=== PATIENT | female | born 1975 | race Caucasian/White ===

== ENCOUNTER 2016-09-06 07:45 | Emergency (ER) | payer OTHER ==
--- NOTE | 2016-09-06 07:56 | PDOC ---
History of Present Illness - General History Source: Patient Exam Limitations: No Limitations - History of Present Illness Initial Comments: CHIEF COMPLAINT: 40 y/o afebrile female with PMH kidney stones, visiting from [place] on vacation c/o right side pain with nausea and vomiting this morning. HISTORY OF PRESENT ILLNESS: The patient states this feels like her normal kidney stone pain. She states it is intermittent, starting in her right lower back and radiating around to her right pelvis. She is currently vomiting. She denies fever, chills, Cp, SOB, hematuria, dysuria. The patient does not have a urologist in [place] and has never had a stent. Vital signs on arrival are REVIEW OF SYSTEMS: GENERAL/CONSTITUTIONAL: No fever/chills. No weakness. No weight change. HEAD, EYES, EARS, NOSE AND THROAT: No change in vision. No ear pain or discharge. No sore throat. CARDIOVASCULAR: No chest pain or shortness of breath. RESPIRATORY: No cough, wheezing, or hemoptysis. GASTROINTESTINAL: +nausea and vomiting. no diarrhea or constipation. GENITOURINARY: No dysuria, frequency, or change in urination. MUSCULOSKELETAL: No joint or muscle swelling or pain. No neck pain. +right low back and side pain. SKIN: No rash or easy bruising. NEUROLOGIC: No headache, vertigo, loss of consciousness, or loss of sensation. PHYSICAL EXAM: GENERAL: The patient is awake, alert, and fully oriented, actively vomiting in the ER. HEAD: Normal with no signs of trauma. ENT: Pupils equal, round and reactive to light, extraocular movements intact, sclera anicteric, conjunctiva clear. Neck supple. LUNGS: Clear to auscultation bilaterally. Normal excursion. No respiratory distress or use of accessory muscles. CV: RRR, S1/S2, no MRG. Cap refill < 2 sec. ABDOMEN: Soft, non-distended, non-tender even to deep palpation, no hepatomegaly or splenomegaly, no masses. No rebound, guarding or rigidity. BACK: No CVA TTP b/l. Right flank pain with palpation. EXTREMITIES: Normal range of motion, no edema. NEUROLOGICAL: Normal speech, normal gait. CN II-XII grossly intact. PSYCH: Normal mood, normal affect. SKIN: Warm, dry, normal turgor, no rashes or lesions noted. <WoLisa boss - Last Filed: 09/06/16 10:34> <Jackie Ulloa - Last Filed: 09/07/16 15:38> - General Chief Complaint: Pain, Acute Stated Complaint: SIDE PAIN Time Seen by Provider: 09/06/16 07:49 Past History - Immunization History Immunization Up to Date: Yes - Psycho/Social/Smoking Cessation Hx Anxiety: No Suicidal Ideation: No Smoking History: Current every day smoker Number of Cigarettes Smoked Daily: 20 Hx Alcohol Use: No Drug/Substance Use Hx: No Substance Use Type: None <Lsia Ng - Last Filed: 09/06/16 10:34> <Jackie Ulloa - Last Filed: 09/07/16 15:38> - Past Medical History Allergies/Adverse Reactions: Allergies Allergy/AdvReac Type Severity Reaction Status Date / Time No Known Allergies Allergy Verified 09/06/16 08:25 Home Medications: Ambulatory Orders Ondansetron [Zofran Odt -] 4 mg SL TID #6 od.tablet 09/06/16 *Physical Exam - Vital Signs Last Vital Signs Temp Pulse Resp BP Pulse Ox 98.3 F 69 20 94/55 100 09/06/16 08:05 09/06/16 11:30 09/06/16 08:05 09/06/16 11:30 09/06/16 11:30 <Jackie Ulloa - Last Filed: 09/07/16 15:38> ED Treatment Course - LABORATORY CBC & Chemistry Diagram: 09/06/16 08:20 09/06/16 08:20 <Lisa Ng - Last Filed: 09/06/16 10:34> - LABORATORY CBC & Chemistry Diagram: 09/06/16 08:20 09/06/16 08:20 - ADDITIONAL ORDERS Additional order review: 09/06/16 09:06 Urine Culture - Final Urine - Urine Clean Catch NO GROWTH OBTAINED 09/06/16 08:20 RBC 4.60 MCV 88.1 MCHC 35.1 RDW 12.9 MPV 8.6 Neutrophils % 79.4 D Lymphocytes % 12.7 D Monocytes % 6.9 Eosinophils % 0.7 D Basophils % 0.3 - Medications Given in the ED: ED Medications Discontinued Medications Generic Name Dose Route Start Last Admin Trade Name Freq PRN Reason Stop Dose Admin Sodium Chloride 1,000 mls @ 1,000 mls/hr 09/06/16 08:06 09/06/16 08:10 Normal Saline - IV 09/06/16 09:05 1,000 mls/hr ASDIR STA Administration Ketorolac Tromethamine 30 mg 09/06/16 08:06 09/06/16 08:10 Toradol Injection - IVPUSH 09/06/16 08:07 30 mg ONCE ONE Administration Ondansetron HCl 4 mg 09/06/16 08:06 09/06/16 08:10 Zofran Injection IVPUSH 09/06/16 08:07 4 mg ONCE ONE Administration <Jackie Ulloa - Last Filed: 09/07/16 15:38> Medical Decision Making - Medical Decision Making A/P: 40 y/o afebrile female with possible right kidney stone. Plan is as follows: 1. UA/culture 2. Labs 3. IV fluids 4. IV Toradol 5. IV zofran 6. Spiral CT Labs unremarkable UA with >[address] IMPRESSION: 5mm calcification in bladder with mild hydronephrosis. The patient looks much better and states she feels much better. Gave her the results. Suggested she take 600mg of Ibuprofen every 6 hours with food for pain , drink plenty of fluids and return to the ER with any worsening or concerning symptoms. Will send rx for zofran. The patient verbalizes understanding of all instructions, has no further questions and is awaiting discharge. <Lisa Ng - Last Filed: 09/06/16 10:34> *DC/Admit/Observation/Transfer <Lisa Ng - Last Filed: 09/06/16 10:34> - Attestations Physician Attestion: I reviewed the case with the mid-level practitioner and agree with the mid- level practitioner's assessment, diagnosis and disposition. <Jackie Ulloa - Last Filed: 09/07/16 15:38> Diagnosis at time of Disposition: Kidney stone - Discharge Dispostion Disposition: HOME Condition at time of disposition: Improved - Prescriptions Prescriptions: Ondansetron [Zofran Odt -] 4 mg SL TID #6 od.tablet - Referrals Referrals: Jatinder Mcneal MD [Staff Physician] - 1 week - Patient Instructions Printed Discharge Instructions: DI for Kidney Stones Additional Instructions: Discharge Instructions: -You passed a 5mm kidney stone -Take 600mg of Ibuprofen for pain with food every 6 hours -Drink at least 64oz of water daily -Take prescription zofran for nausea/vomiting if needed -Return to the ER with any worsening or concerning symptoms
[2016-09-06] MEDS ORDERED: KETOROLAC TROMETHAMINE 30 MG/1 ML VIAL ONE (08:05)
[2016-09-06] MEDS ORDERED: ONDANSETRON 4 MG/2 ML VIAL ONE (08:05)
[2016-09-06] MEDS ORDERED: KETOROLAC TROMETHAMINE 30 MG/1 ML VIAL IVPUSH ONE (08:06)
[2016-09-06] MEDS ORDERED: SODIUM CHLORIDE 1,000 ML IV STA (08:06)
[2016-09-06] MEDS ORDERED: ONDANSETRON 4 MG/2 ML VIAL IVPUSH ONE (08:06)
[2016-09-06 08:37] LABS: BASOPHIL 0.3 % (0-2.0); EOSINOPHIL 0.7 % (0-4.5); MCH 30.9 pg (25.7-33.7); MCHC 35.1 g/dl (32.0-36.0); MEAN CELL VOLUME 88.1 fl (80-96); MEAN PLT VOLUME 8.6 fl (7.5-11.1); NEUTROPHILS 79.4 % (42.8-82.8); PLATELET COUNT 142 K/MM3 (134-434); RDW 12.9 % (11.6-15.6); WHITE BLOOD COUNT 9.7 K/mm3 (4.0-10.0)
[2016-09-06 08:42] VITALS: TEMP 98.3; BMI 20.5
[2016-09-06 08:54] LABS: ALBUMIN 3.9 g/dl (3.4-5.0); ANION GAP 8 (8-16); BILIRUBIN,TOTAL 0.6 mg/dL (0.2-1.0); CALCIUM 8.7 mg/dL (8.5-10.1); CO2 26 mmol/L (21-32); CREATININE 0.9 mg/dL (0.55-1.02); GLUCOSE,RANDOM 109 mg/dL (74-106); SGOT/AST 16 U/L (15-37); SGPT/ALT 13 U/L (12-78); TOT PROT 6.7 g/dl (6.4-8.2)
[2016-09-06 08:55] LABS: ALK PHOS 76 U/L (45-117)
[2016-09-06 09:18] LABS: URINE APPEARANCE SLCLOUDY; URINE BILIRUBIN NEGATIVE (NEGATIVE); URINE COLOR YELLOW; URINE GLUCOSE (UA) NEGATIVE (NEGATIVE); URINE KETONE NEGATIVE (NEGATIVE); URINE LEUK ESTERASE NEGATIVE (NEGATIVE); URINE NITRITE NEGATIVE (NEGATIVE); URINE UROBILINOGEN NEGATIVE E.U./dl (0.2-1.0)
[2016-09-06 09:20] LABS: URINE BLOOD 3+ (NEGATIVE); URINE PROTEIN 2+ (NEGATIVE)
[2016-09-06 09:21] LABS: URINE MUCUS MANY; URINE RBC 725 /hpf (0-3); URINE WBC 19 /hpf (3-5)
[2016-09-06 11:32] VITALS: BP 94/55; PULSE 69
== END 2016-09-06 11:31 | disposition home or self-care (01) ==
LOC: JER 07:45
PROC: 3E0333Z Introduction of Anti-inflammatory into Peripheral Vein, Percutaneous Approach (ICD-10-PCS; principal; 2016-09-06)
PROC: 3E033GC Introduction of Other Therapeutic Substance into Peripheral Vein, Percutaneous Approach (ICD-10-PCS; 2016-09-06)
PROC: 3E0337Z Introduction of Electrolytic and Water Balance Substance into Peripheral Vein, Percutaneous Approach (ICD-10-PCS; 2016-09-06)
DX: N23 Unspecified renal colic (principal); F17.210 Nicotine dependence, cigarettes, uncomplicated
CPT/HCPCS: 36415; 74176; 80053; 81003; 81015; 84702; 85025; 87086; 99282-25

== ENCOUNTER 2022-02-05 16:52 | Emergency (ER) | payer BC ==
[2022-02-05 17:18] VITALS: BP 97/68; PULSE 101; RESP 18; TEMP 97.9; BMI 22.6
[2022-02-05] MEDS ORDERED: ALBUTEROL SO4 2.5/IPRATROPIUM 0.5 INH SOL 3 ML VIAL.NEB. NEB ONE (18:10)
== END 2022-02-05 20:32 | disposition home or self-care (01) ==
LOC: JER 16:52 → JERFT 16:52 → JER 20:32
DX: R06.02 Shortness of breath (principal); R05.1 Acute cough
CPT/HCPCS: 0241U-QW; 71046-TC-FY; 93005; 93010; 99285-25

== ENCOUNTER 2022-02-22 09:00 | Emergency (ER) | payer SELFPAY ==
[2022-02-22 09:24] VITALS: BP 103/43; PULSE 94; RESP 18; TEMP 98.4; BMI 23.3
== END 2022-02-22 10:45 | disposition left against medical advice (07) ==
LOC: JER 09:00
CPT/HCPCS: 93005; 93010

== ENCOUNTER 2022-05-07 09:00 | Emergency (ER) | payer OTHER ==
[2022-05-07 09:14] VITALS: BP 125/78; PULSE 81; RESP 20; TEMP 98; BMI 22.4
[2022-05-07] MEDS ORDERED: FAMOTIDINE 20 MG/50 ML IVPB 20 MG/50 ML MG IVPB ONE ×2 (10:29→10:59)
[2022-05-07] MEDS ORDERED: KETOROLAC TROMETHAMINE 15 MG/ML VIAL IVPUSH ONE (10:29)
[2022-05-07] MEDS ORDERED: LACTATED RINGERS SOLUTION 1000 ML INFUS.BAG IV ONE (10:29)
[2022-05-07] MEDS ORDERED: ONDANSETRON 4 MG/2 ML VIAL IVPUSH ONE (10:29)
[2022-05-07 10:46] LABS: BASO % 0.5 % (0-2.0); EOS % 1.1 % (0-4.5); HEMATOCRIT 41.3 % (32.4-45.2); HEMOGLOBIN 14.2 GM/dL (10.7-15.3); LYMPH % 12.7 % (8-40); MCH 30.9 pg (25.7-33.7); MCHC 34.3 g/dl (32.0-36.0); MEAN CELL VOLUME 90.1 fl (80-96); MEAN PLT VOLUME 7.8 fl (7.5-11.1); MONO % 8.7 % (3.8-10.2); PLATELET COUNT 173 10^3/uL (134-434); RBC 4.59 M/mm3 (3.60-5.2); RDW 13.2 % (11.6-15.6); WHITE BLOOD COUNT 8.3 K/mm3 (4.0-10.0)
[2022-05-07 10:50] LABS: EPI CELLS >36 /uL (0-25.1); HYALINE CASTS 4 /uL (0-3.1); URINE APPEARANCE CLOUDY; URINE BACTERIA 221 /uL (0-1359); URINE BILIRUBIN NEGATIVE (NEGATIVE); URINE COLOR ORANGE; URINE GLUCOSE (UA) NEGATIVE (NEGATIVE); URINE KETONE TRACE (NEGATIVE); URINE LEUK ESTERASE TRACE (NEGATIVE); URINE NITRITE NEGATIVE (NEGATIVE); URINE PROTEIN 2+ (NEGATIVE); URINE RBC 5220 /uL (0-23.9); URINE WBC 69 /uL (0-25.8)
[2022-05-07 10:51] LABS: HCG,QUALITATIVE URINE Negative
[2022-05-07] MEDS ORDERED: KETOROLAC TROMETHAMINE 15 MG/ML VIAL ONE (10:59)
[2022-05-07 11:04] LABS: BLOOD UREA NITROGEN 13.6 mg/dL (7-18); CALCIUM 8.8 mg/dL (8.5-10.1)
[2022-05-07 11:08] LABS: CREATININE 0.8 mg/dL (0.55-1.3)
[2022-05-07 11:10] LABS: BILIRUBIN,TOTAL 0.6 mg/dL (0.2-1)
[2022-05-07] MEDS ORDERED: ONDANSETRON 4 MG/2 ML VIAL ONE (11:15)
[2022-05-07] MEDS ORDERED: CEFTRIAXONE 1 GM in DEXTROSE 5%-WATER - 100 ML IVPB ONE (11:28)
[2022-05-07] MEDS ORDERED: CEFTRIAXONE 1 GM/50 ML BAG ONE (11:36)
== END 2022-05-07 12:46 | disposition home or self-care (01) ==
LOC: JER 09:00 → JERFT 09:00
PROC: 3E03329 Introduction of Other Anti-infective into Peripheral Vein, Percutaneous Approach (ICD-10-PCS; principal; 2022-05-07)
PROC: 3E033GC Introduction of Other Therapeutic Substance into Peripheral Vein, Percutaneous Approach (ICD-10-PCS; 2022-05-07)
PROC: 3E0333Z Introduction of Anti-inflammatory into Peripheral Vein, Percutaneous Approach (ICD-10-PCS; 2022-05-07)
PROC: 3E033GC Introduction of Other Therapeutic Substance into Peripheral Vein, Percutaneous Approach (ICD-10-PCS; 2022-05-07)
DX: N20.0 Calculus of kidney (principal)
CPT/HCPCS: 36415; 74176-TC; 76775-TC; 80053; 81003; 84703; 85025; 87086; 99285-25

== ENCOUNTER 2023-01-08 16:26 | Emergency (ER) | payer BC, OTHER ==
[2023-01-08 16:46] VITALS: BP 93/56; PULSE 104; RESP 18; TEMP 98; BMI 23.3
[2023-01-08] MEDS ORDERED: ACETAMINOPHEN 1000 MG/100 ML BAG IVPB ONE (17:18)
[2023-01-08] MEDS ORDERED: ONDANSETRON 4 MG/2 ML VIAL IVPUSH ONE (17:18)
[2023-01-08] MEDS ORDERED: SODIUM CHLORIDE 1,000 ML IV STA (17:18)
[2023-01-08] MEDS ORDERED: KETOROLAC TROMETHAMINE 15 MG/ML VIAL IVPUSH ONE (17:25)
[2023-01-08] MEDS ORDERED: KETOROLAC TROMETHAMINE 15 MG/ML VIAL ONE (17:37)
[2023-01-08] MEDS ORDERED: ACETAMINOPHEN INJECTION 100 ML IVPB ONE (17:37)
[2023-01-08] MEDS ORDERED: ONDANSETRON 4 MG/2 ML VIAL ONE (17:37)
[2023-01-08 18:16] LABS: BASO % 0.4 % (0-2.0); EOS % 0.4 % (0-4.5); HEMATOCRIT 41.3 % (32.4-45.2); HEMOGLOBIN 14.4 GM/dL (10.7-15.3); LYMPH % 6.7 % (8-40); MCH 30.5 pg (25.7-33.7); MEAN CELL VOLUME 87.4 fl (80-96); MEAN PLT VOLUME 8.4 fl (7.5-11.1); MONO % 3.8 % (3.8-10.2); NEUT % 88.7 % (42.8-82.8); PLATELET COUNT 125 10^3/uL (134-434); RBC 4.72 M/mm3 (3.60-5.2); WHITE BLOOD COUNT 7.5 K/mm3 (4.0-10.0)
[2023-01-08 18:30] LABS: POTASSIUM 3.8 mmol/L (3.5-5.1)
[2023-01-08 18:33] LABS: CALCIUM 8.4 mg/dL (8.5-10.1)
[2023-01-08 18:34] LABS: ALBUMIN 3.5 g/dl (3.4-5.0); BLOOD UREA NITROGEN 14.6 mg/dL (7-18)
[2023-01-08 18:38] LABS: BILIRUBIN,TOTAL 0.8 mg/dL (0.2-1); CREATININE 0.9 mg/dL (0.55-1.3); TOT PROT 6.6 g/dl (6.4-8.2)
[2023-01-08] MEDS ORDERED: morphine CARPU-JECT 2 MG/1 ML DISP.SYRIN IVPUSH ONE (18:42)
[2023-01-08 19:01] LABS: EPI CELLS 14 /uL (0-25.1); HYALINE CASTS 11 /uL (0-3.1); PH,URINE 5.5 (5.0-8.0); URINE APPEARANCE CLOUDY; URINE BACTERIA >9,000 /uL (0-1359); URINE BILIRUBIN NEGATIVE (NEGATIVE); URINE COLOR YELLOW; URINE GLUCOSE (UA) NEGATIVE (NEGATIVE); URINE KETONE TRACE (NEGATIVE); URINE LEUK ESTERASE 1+ (NEGATIVE); URINE NITRITE POSITIVE (NEGATIVE); URINE PROTEIN 1+ (NEGATIVE); URINE RBC 87 /uL (0-23.9); URINE WBC 466 /uL (0-25.8)
[2023-01-08 19:02] LABS: HCG,QUALITATIVE URINE Negative
[2023-01-08] MEDS ORDERED: CEFTRIAXONE 1,000 MG in DEXTROSE 5%-WATER - 50 ML IVPB ONE (20:08)
[2023-01-08] MEDS ORDERED: CEFTRIAXONE 1 GM/50 ML BAG ONE (20:13)
[2023-01-08] MEDS ORDERED: ACETAMINOPHEN 500 MG TABLET (FP) PO ONE (23:57)
[2023-01-09] MEDS ORDERED: ACETAMINOPHEN 325 MG TABLET (FP) ONE (00:25)
== END 2023-01-09 00:31 | disposition home or self-care (01) ==
LOC: JER 16:26
PROC: 3E03329 Introduction of Other Anti-infective into Peripheral Vein, Percutaneous Approach (ICD-10-PCS; principal; 2023-01-08)
PROC: 3E033GC Introduction of Other Therapeutic Substance into Peripheral Vein, Percutaneous Approach (ICD-10-PCS; 2023-01-08)
PROC: 3E033GC Introduction of Other Therapeutic Substance into Peripheral Vein, Percutaneous Approach (ICD-10-PCS; 2023-01-08)
PROC: 3E033GC Introduction of Other Therapeutic Substance into Peripheral Vein, Percutaneous Approach (ICD-10-PCS; 2023-01-08)
PROC: 3E033GC Introduction of Other Therapeutic Substance into Peripheral Vein, Percutaneous Approach (ICD-10-PCS; 2023-01-08)
PROC: 3E0337Z Introduction of Electrolytic and Water Balance Substance into Peripheral Vein, Percutaneous Approach (ICD-10-PCS; 2023-01-08)
DX: R10.9 Unspecified abdominal pain (principal); R11.2 Nausea with vomiting, unspecified; N12 Tubulo-interstitial nephritis, not specified as acute or chronic
CPT/HCPCS: 36415; 74176-TC; 80053; 81003; 83690; 84703; 85025; 87086; 87186; 99284-25